=== PATIENT | female | born 1940 | race Caucasian/White ===

== ENCOUNTER → 2023-07-20 11:29 | Outpatient (REF) | payer MEDICARE, OTHER, SELFPAY ==
[2023-07-20 12:14] LABS: % Basophils 0.7 % (0-2); % Eosinophils 1.3 % (0-6); % Immature Granulocytes 0.2 % (0-0.5); % Lymphocytes 16.5 % (20.5-51.1); % Monocytes 7.3 % (1.7-9.3); Absolute Basophils 0.1 10^3/uL (0-0.2); Absolute Eosinophils 0.1 10^3/uL (0-0.7); Absolute Lymphocytes 1.5 10^3/uL (1.2-3.4); Absolute Monocytes 0.7 10^3/uL (0.1-0.6); Absolute Neutrophils 6.9 10^3/uL (1.4-6.5); Hematocrit 41.5 % (37.0-47.0); Hemoglobin 13.7 g/dL (12.0-16.0); Mean Corpuscular Hgb 32.8 pg (27.0-31.0); Mean Corpuscular Volume 99.3 fL (81.0-99.0); Mean Platelet Volume 10.8 fL (7.4-10.4); Nucleated Red Blood Cells % 0 %; Platelet Count 244 10^3/uL (130-400); Red Blood Cell Count 4.18 10^6/uL (4.20-5.40); Red Cell Dist. Width 13.2 % (11.5-14.5); White Blood Cell Count 9.4 10^3/uL (4.8-10.8)
[2023-07-20 12:49] LABS: C-Reactive Protein < 5.00 mg/L (0.0-10.00)
[2023-07-20 12:50] LABS: ALT (SGPT) 32 U/L (0-35); AST (SGOT) 53 U/L (14-36); Albumin 4.5 g/dl (3.5-5.0); Alkaline Phosphatase 103 U/L (38-126); Blood Urea Nitrogen 15 mg/dl (7-17); Calcium 9.5 mg/dl (8.4-10.2); Carbon Dioxide 28 mmol/L (22-30); Chloride 98 mmol/L (98-107); Creatine Phosphokinase 23 U/L (30-135); Glucose 84 mg/dl (70-99); HDL Cholesterol 103 mg/dl; LDL Cholesterol, Calculated 75 mg/dl; Potassium 4.1 mmol/L (3.5-5.1); Sodium 134 mmol/L (135-145); Total Bilirubin 0.8 mg/dl (0.2-1.3); Total Cholesterol 197 mg/dl (50-199); Total Protein 7.8 g/dl (6.3-8.2); Triglyceride 95 mg/dl (10-149); Very Low Density Lipoprotein 19 mg/dl (0-30); eGFR > 60.00
[2023-07-20 12:55] LABS: Urine Albumin Negative (Neg - Trace); Urine Bilirubin Negative (Negative); Urine Character Clear (Clear); Urine Color Yellow; Urine Glucose Negative (Negative); Urine Ketone Negative (Negative); Urine Leukocyte Negative (Negative); Urine Nitrite Negative (Negative); Urine Occult Blood Negative (Negative); Urine Urobilinogen Negative (Neg - 1+)
[2023-07-20 13:05] LABS: Free T4 1.62 ng/dl (0.78-2.19)
[2023-07-20 13:12] LABS: Urine Amorphous Seen; Urine Squamous Cell 0-2 /LPF (Few); Urine Urothelial Cell 0-2 /LPF (FEW)
[2023-07-20 13:13] LABS: Urine Red Blood Cell 0-2 /HPF (0-2); Urine White Cell 0-2 /HPF (0-5)
[2023-07-20 13:19] LABS: TSH 1.21 uIU/ml (0.47-4.68)
[2023-07-20 13:34] LABS: Erythrocyte Sed Rate 17 mm/hour (0-20)
== END ==
LOC: REG 11:29
PROVIDERS: ATTENDING PHYSICIAN Internal Medicine Rheumatology; FAMILY PHYSICIAN Family Medicine
DX: E78.5 Hyperlipidemia, unspecified (principal); Z86.39 Personal history of other endocrine, nutritional and metabolic disease; M33.20 Polymyositis, organ involvement unspecified; M81.0 Age-related osteoporosis without current pathological fracture
CPT/HCPCS: 36415; 80053; 80061; 81003; 81015; 82550; 84439; 84443; 85025; 85652; 86140

== ENCOUNTER → 2023-10-16 11:04 | Outpatient (REF) | payer MEDICARE, OTHER, SELFPAY ==
[2023-10-16 12:14] LABS: % Basophils 1.2 % (0-2); % Eosinophils 1.9 % (0-6); % Immature Granulocytes 0.2 % (0-0.5); % Lymphocytes 26.8 % (20.5-51.1); % Monocytes 10.5 % (1.7-9.3); % Neutrophils 59.4 % (42.2-75.2); Absolute Basophils 0.1 10^3/uL (0-0.2); Absolute Eosinophils 0.1 10^3/uL (0-0.7); Absolute Lymphocytes 1.4 10^3/uL (1.2-3.4); Absolute Monocytes 0.5 10^3/uL (0.1-0.6); Absolute Neutrophils 3.1 10^3/uL (1.4-6.5); Hematocrit 39.9 % (37.0-47.0); Mean Corp Hgb Conc. 32.6 g/dL (33.0-37.0); Mean Corpuscular Hgb 32.5 pg (27.0-31.0); Mean Corpuscular Volume 99.8 fL (81.0-99.0); Mean Platelet Volume 10.7 fL (7.4-10.4); Nucleated Red Blood Cells % 0 %; Platelet Count 244 10^3/uL (130-400); Red Cell Dist. Width 13.3 % (11.5-14.5); White Blood Cell Count 5.1 10^3/uL (4.8-10.8)
[2023-10-16 12:34] LABS: ALT (SGPT) 32 U/L (0-35); AST (SGOT) 54 U/L (14-36); Albumin 4.2 g/dl (3.5-5.0); Alkaline Phosphatase 96 U/L (38-126); Blood Urea Nitrogen 15 mg/dl (7-17); Calcium 9.5 mg/dl (8.4-10.2); Carbon Dioxide 30 mmol/L (22-30); Chloride 96 mmol/L (98-107); Creatine Phosphokinase < 20 U/L (30-135); Glucose 86 mg/dl (70-99); Potassium 4.4 mmol/L (3.5-5.1); Sodium 134 mmol/L (135-145); Total Bilirubin 0.7 mg/dl (0.2-1.3); Total Protein 8.2 g/dl (6.3-8.2); eGFR > 60.00
[2023-10-16 12:44] LABS: C-Reactive Protein < 5.00 mg/L (0.0-10.00)
[2023-10-16 13:29] LABS: Erythrocyte Sed Rate 24 mm/hour (0-20)
== END ==
LOC: REG 11:04
PROVIDERS: ATTENDING PHYSICIAN Internal Medicine Rheumatology; FAMILY PHYSICIAN Family Medicine
DX: M33.20 Polymyositis, organ involvement unspecified (principal)
CPT/HCPCS: 36415; 80053; 82550; 85025; 85652; 86140

== ENCOUNTER → 2024-02-06 11:29 | Outpatient (REF) | payer MEDICARE, OTHER, SELFPAY ==
[2024-02-06 12:19] LABS: % Basophils 0.9 % (0-2); % Eosinophils 1.2 % (0-6); % Immature Granulocytes 0.3 % (0-0.5); % Lymphocytes 27.6 % (20.5-51.1); % Monocytes 9.8 % (1.7-9.3); % Neutrophils 60.2 % (42.2-75.2); Absolute Basophils 0.1 10^3/uL (0-0.2); Absolute Eosinophils 0.1 10^3/uL (0-0.7); Absolute Lymphocytes 1.8 10^3/uL (1.2-3.4); Absolute Monocytes 0.6 10^3/uL (0.1-0.6); Absolute Neutrophils 3.9 10^3/uL (1.4-6.5); Hematocrit 39.1 % (37.0-47.0); Hemoglobin 13.4 g/dL (12.0-16.0); Mean Corp Hgb Conc. 34.3 g/dL (33.0-37.0); Mean Corpuscular Hgb 33.5 pg (27.0-31.0); Mean Corpuscular Volume 97.8 fL (81.0-99.0); Mean Platelet Volume 10.8 fL (7.4-10.4); Nucleated Red Blood Cells % 0 %; Platelet Count 224 10^3/uL (130-400); White Blood Cell Count 6.4 10^3/uL (4.8-10.8)
[2024-02-06 12:48] LABS: Erythrocyte Sed Rate 21 mm/hour (0-20)
[2024-02-06 12:52] LABS: C-Reactive Protein < 5.00 mg/L (0.0-10.00)
[2024-02-06 13:29] LABS: ALT (SGPT) 28 U/L (0-35); AST (SGOT) 48 U/L (14-36); Albumin 4.4 g/dl (3.5-5.0); Alkaline Phosphatase 82 U/L (38-126); Blood Urea Nitrogen 15 mg/dl (7-17); Calcium 9.7 mg/dl (8.4-10.2); Carbon Dioxide 27 mmol/L (22-30); Chloride 97 mmol/L (98-107); Creatine Phosphokinase 35 U/L (30-135); Glucose 96 mg/dl (70-99); Potassium 4.9 mmol/L (3.5-5.1); Sodium 134 mmol/L (135-145); Total Bilirubin 0.6 mg/dl (0.2-1.3); Total Protein 7.9 g/dl (6.3-8.2); eGFR > 60.00
== END ==
LOC: REG 11:29
PROVIDERS: ATTENDING PHYSICIAN Internal Medicine Rheumatology; FAMILY PHYSICIAN Family Medicine
DX: M33.20 Polymyositis, organ involvement unspecified (principal); M81.0 Age-related osteoporosis without current pathological fracture
CPT/HCPCS: 36415; 80053; 82550; 85025; 85652; 86140

== ENCOUNTER → 2024-06-18 10:57 | Outpatient (REF) | payer MEDICARE, OTHER, SELFPAY ==
[2024-06-18 11:28] LABS: % Basophils 0.5 % (0-2); % Eosinophils 1.4 % (0-6); % Immature Granulocytes 0.3 % (0-0.5); % Lymphocytes 20.1 % (20.5-51.1); % Monocytes 7.9 % (1.7-9.3); % Neutrophils 69.8 % (42.2-75.2); Absolute Basophils 0.1 10^3/uL (0-0.2); Absolute Eosinophils 0.1 10^3/uL (0-0.7); Absolute Monocytes 0.8 10^3/uL (0.1-0.6); Absolute Neutrophils 7.1 10^3/uL (1.4-6.5); Hemoglobin 13.1 g/dL (12.0-16.0); Mean Corp Hgb Conc. 33.6 g/dL (33.0-37.0); Mean Corpuscular Hgb 33.5 pg (27.0-31.0); Mean Corpuscular Volume 99.7 fL (81.0-99.0); Mean Platelet Volume 10.8 fL (7.4-10.4); Nucleated Red Blood Cells % 0 %; Platelet Count 194 10^3/uL (130-400); Red Blood Cell Count 3.91 10^6/uL (4.20-5.40); Red Cell Dist. Width 13.5 % (11.5-14.5); White Blood Cell Count 10.1 10^3/uL (4.8-10.8)
[2024-06-18 13:07] LABS: Vitamin D, 25-OH*** 69.7 ng/mL (30-80)
[2024-06-18 13:09] LABS: ALT (SGPT) 42 U/L (0-35); AST (SGOT) 58 U/L (14-36); Albumin 4.5 g/dl (3.5-5.0); Alkaline Phosphatase 112 U/L (38-126); Blood Urea Nitrogen 18 mg/dl (7-17); Calcium 9.3 mg/dl (8.4-10.2); Carbon Dioxide 28 mmol/L (22-30); Chloride 96 mmol/L (98-107); Creatine Phosphokinase 21 U/L (30-135); Glucose 89 mg/dl (70-99); Potassium 4.9 mmol/L (3.5-5.1); Sodium 131 mmol/L (135-145); Total Bilirubin 0.9 mg/dl (0.2-1.3); Total Protein 8.2 g/dl (6.3-8.2); eGFR > 60.00
[2024-06-18 13:29] LABS: Erythrocyte Sed Rate 8 mm/hour (0-20)
[2024-06-18 13:53] LABS: C-Reactive Protein < 5.00 mg/L (0.0-10.00)
== END ==
LOC: REG 10:57
PROVIDERS: ATTENDING PHYSICIAN Internal Medicine Rheumatology; FAMILY PHYSICIAN Family Medicine
DX: M33.20 Polymyositis, organ involvement unspecified (principal); M81.0 Age-related osteoporosis without current pathological fracture
CPT/HCPCS: 36415; 80053; 82306; 82550; 85025; 85652; 86140

== ENCOUNTER 2024-07-27 10:27 | Emergency (ER) | payer MEDICARE, OTHER, SELFPAY ==
[2024-07-27 10:36] VITALS: BP 158/94
--- NOTE | 2024-07-27 12:23 | ED.GENMED ---
History of Present Illness
General
Chief Complaint: Head Injury
Source: patient and spouse
Exam Limitations: none
Time Seen by Provider: 07/27/24 10:52
Nursing documentation reviewed up to this point in time: agreed with
History of Present Illness
History of Present Illness:
84 yo female with at bedside is her for posterior scalp pain 3 weeks after a fall backwards, striking the back of her head on kitchen floor. witnessed the fall, although he states she was 'out' there was no LOC according to her, she
states she could hear him calling 'Honey, honey' immediately after the fall and then he helped her up. She has been doing ADLs as usual including her exercise classes this past week and did 'fine.' Saw PCP for sinus pressure 4 days ago and is
taking Z pack.
Denies neck or back pain, denies any other injury
Past History
Past History
ED Past Medical History: HTN (b/p pills HCTZ), Hypothyroidism (synthroid) and Other (Polymyositis White)
ED Past Surgical History: Other (Lobe of thyroid removed 1990)
Social History
Tobacco: Non-smoker
Alcohol: Occasional
Personal:
Living: with family
Family History
Family History: Negative Diabetes, Hypertension or CAD
Review of Systems
Review of Systems
Allergies reviewed?: Yes
All Other Systems: ROS reviewed and negative except as documented in HPI and ROS
Constitutional: Denies fever or fatigue
Respiratory: Denies trouble breathing
Cardiac: Denies chest pain, diaphoresis, palpitations or syncope
ABD/GI: Denies abdominal pain, nausea, vomiting or diarrhea
: Denies dysuria or frequency
Musculoskeletal: Denies edema, neck pain or back pain
Skin: Reports no symptoms
Neurological: Reports headache (Woke several times during the night with the back of her head 'hurting' at different times through the night. Changing position helps the pain); Denies dizzy, weakness or numbness
Phy Exam
Physical Exam
Physical Exam:
GENERAL: No acute distress. A&Ox3.
CONSTITUTIONAL: Afebrile.
Head: NC/AT, nontender
EYES: clear, conjunctivae normal
ENMT: moist mucus membranes, Pharynx nl,
RESPIRATORY: Regular respirations, nonlabored, lungs clear.
CARDIOVASCULAR: Regular rate and rhythm, no murmurs, no rubs.
GI: Soft, nontender, normal BS
MUSCULOSKELETAL: Moves with ease. Well perfused.
SKIN: Warm, dry, pink
PSYCH: Normal mood and affect. Well kept, interactive and appropriate
NEUROLOGIC: Awake, alert and oriented. Speech clear. Cranial nerves II through XII intact. [id number] intact. Ambulates well with steady gait. No focal neurological deficits
Course
Orders/Labs/Results
Orders:
Orders
07/27/24 10:52
CT Head W/o Iv Contrast Urgent
Comment:
Reason For Exam: headache 2 weeks post fall
Vital Signs
Initial and Last Documented VS:
Initial Vital Signs
Temp Pulse Resp BP Pulse Ox
98.1 F 93 16 158/94 98
07/27/24 10:36 07/27/24 10:36 07/27/24 10:36 07/27/24 10:36 07/27/24 10:36
Last Documented Vital Signs
Temp Pulse Resp BP Pulse Ox
98.1 F 91 18 153/74 96
07/27/24 10:36 07/27/24 12:52 07/27/24 12:52 07/27/24 12:52 07/27/24 12:52
MDM/Problems Addressed
Differential Diagnosis Includes:
concussion, ICH, cephalgia, post traumatic headache
MDM/Problems Addressed:
84 yo female with at bedside is her for posterior scalp pain, fleeting, intermittent, during last night. She would wake up feel the twinge of pain posterior scalp, reposition and go back to sleep. This happened several time during the night.
3 weeks ago after a fall backwards, striking the back of her head on kitchen floor. witnessed the fall, although he states she was 'out' there was no LOC according to her, she states she could hear him calling 'Honey, honey' immediately
after the fall and then he helped her up. She has been doing ADLs as usual including her exercise classes this past week and did 'fine.' Saw PCP for sinus pressure 4 days ago and is taking Z pack.
Denies neck or back pain, denies any other injury
NAD
Neuro exam is unremarkable
No scalp swelling or tenderness.
Asymptomatic at this time.
Most likely cephalgia
12:45 PM:
Head CT negative patient reassured
Patient ambulated out with normal gait on exam
*Critical Care Note
Total Time (30-74mins, 75-104mins- exclusive of procedures): Not Applicable
ED Attending Note
-
Portions of this chart may have been created with voice recognition software.� Occasional wrong word or��sound alike� substitutions may have occurred due to the inherent limitations of voice recognition software.
Discharge Plan
Departure
Patient Disposition: Home (Routine Discharge)
Date of Disposition: 07/27/24
Time of Disposition: 12:42
Patient with high blood pressure during this ER visit?: No
Condition: Good
Discharge Problem:
Cephalalgia
Instructions: Head Injury in Adults (DC), Headaches in adults
Prescriptions:
No Action
levothyroxine 88 MCG tablet
88 mcg PO DAILY
docosahexaenoic acid-epa 1 CAP capsule
1 cap PO DAILY
Saccharomyces boulardii 250 MG capsule
250 mg PO DAILY
multivitamin with folic acid [Tab-A-Romi] 1 TABLET tablet
1 tab PO DAILY
prednisone 5 MG tablet
5 mg PO DAILY
calcium carbonate [Oyster Shell Calcium 500] 500 MG tablet
500 mg PO DAILY
ascorbic acid (vitamin C) [Vitamin C] 500 MG tablet
500 mg PO DAILY
lidocaine HCl [Lidocaine HCl Viscous] 2 % solution
15 ml PO DAILY
azelastine 1 SPRAY aerosol,spray
1 spray intranasal BID
loratadine 10 MG tablet
10 mg PO DAILY
cholecalciferol (vitamin D3) 2,000 UNITS tablet
2,000 units PO DAILY
denosumab [Prolia] 60 MG/ML syringe
60 mg SC [id number]
guaifenesin [Mucus Relief ER] 600 MG tablet extended release 12hr
600 mg PO BID
Hydrocortisone [Procto-Med Hc] 28 GM Crm.[employer].Cruzito
1 applic AK DAILY
lisinopril 20 MG tablet
10 - 20 mg PO BID Qty: 45 0RF
Rx Instructions:
TAKE 20MG EVERY MORNING AND 10MG (1/2 PILL) EVERY EVENING
cephalexin 500 MG capsule
500 mg PO BID Qty: 6 0RF
aspirin 81 MG tablet,delayed release (DR/EC)
81 mg PO DAILY Qty: 0 0RF
Rx Instructions:
DO NOT TAKE UNTIL DIRECTED TO RESUME BY YOUR PHYSICIAN
Referrals:
Melissa Richards, DO [Family Provider] - As needed
Activity Restrictions/Additional Instructions:
As we discussed, nothing worrisome in your workup here today. Specifically your head CT shows nothing worrisome.
See your doctor in 1 week if head pain is not completely resolved by then
Interventions
Interventions:
*Risk Screen - Suicide Last Done: 07/27/24 10:36
*Neglect/Abuse Screening Last Done: 07/27/24 10:36
*ED- Fall Risk Assessment Last Done: 07/27/24 11:03
*ED COVID-19 Vaccine History Last Done: 07/27/24 10:59
*Nursing Disposition Last Done: 07/27/24 13:05
ED- Neurological Assessment Last Done: 07/27/24 11:03
ED-Skin Assessment Last Done: 07/27/24 11:27
Discharge Date and Time
Discharge Date/Time: 07/27/24 13:06
Print Language: [id number]
[2024-07-27 12:52] VITALS: BP 153/74
== END 2024-07-27 13:06 | disposition home or self-care (01) ==
LOC: EMR 10:27
PROVIDERS: EMERGENCY PHYSICIAN Emergency Medicine; FAMILY PHYSICIAN Family Medicine
DX: R51.9 Headache, unspecified (principal); W19.XXXA Unspecified fall, initial encounter; I10 Essential (primary) hypertension; E03.9 Hypothyroidism, unspecified; Z79.899 Other long term (current) drug therapy
CPT/HCPCS: 99284; 70450

== ENCOUNTER → 2024-09-29 10:23 | Outpatient (REF) | payer MEDICARE, OTHER, SELFPAY | LOC: WDC 10:23 | PROVIDERS: ATTENDING PHYSICIAN Family Medicine | DX: Z12.31 Encounter for screening mammogram for malignant neoplasm of breast (principal) | CPT/HCPCS: 77063; 77067 ==

== ENCOUNTER → 2024-10-14 14:28 | Outpatient (REF) | payer MEDICARE, OTHER, SELFPAY ==
[2024-10-14 16:01] LABS: % Basophils 0.7 % (0-2); % Immature Granulocytes 0.1 % (0-0.5); % Lymphocytes 23.2 % (20.5-51.1); % Monocytes 8.8 % (1.7-9.3); % Neutrophils 66.2 % (42.2-75.2); Absolute Basophils 0.1 10^3/uL (0-0.2); Absolute Eosinophils 0.1 10^3/uL (0-0.7); Absolute Lymphocytes 1.6 10^3/uL (1.2-3.4); Absolute Monocytes 0.6 10^3/uL (0.1-0.6); Absolute Neutrophils 4.7 10^3/uL (1.4-6.5); Hematocrit 38.3 % (37.0-47.0); Hemoglobin 13.1 g/dL (12.0-16.0); Mean Corp Hgb Conc. 34.2 g/dL (33.0-37.0); Mean Corpuscular Volume 96.5 fL (81.0-99.0); Mean Platelet Volume 10.8 fL (7.4-10.4); Nucleated Red Blood Cells % 0 %; Platelet Count 215 10^3/uL (130-400); Red Blood Cell Count 3.97 10^6/uL (4.20-5.40); Red Cell Dist. Width 13.3 % (11.5-14.5)
[2024-10-14 16:32] LABS: ALT (SGPT) 37 U/L (0-35); AST (SGOT) 53 U/L (14-36); Albumin 4.4 g/dl (3.5-5.0); Alkaline Phosphatase 97 U/L (38-126); Blood Urea Nitrogen 14 mg/dl (7-17); Calcium 10.2 mg/dl (8.4-10.2); Carbon Dioxide 30 mmol/L (22-30); Chloride 97 mmol/L (98-107); Creatine Phosphokinase < 20 U/L (30-135); Glucose 108 mg/dl (70-99); HDL Cholesterol 91 mg/dl; LDL Cholesterol, Calculated 109 mg/dl; Potassium 5.4 mmol/L (3.5-5.1); Sodium 133 mmol/L (135-145); Total Bilirubin 0.6 mg/dl (0.2-1.3); Total Cholesterol 216 mg/dl (50-199); Total Protein 8.4 g/dl (6.3-8.2); Triglyceride 80 mg/dl (10-149); Very Low Density Lipoprotein 16 mg/dl (0-30); eGFR > 60.00
[2024-10-14 16:36] LABS: C-Reactive Protein < 5.00 mg/L (0.0-10.00)
[2024-10-14 17:01] LABS: Erythrocyte Sed Rate 24 mm/hour (0-20)
== END ==
LOC: REG 14:28
PROVIDERS: ATTENDING PHYSICIAN Physician Assistant; OTHER PHYSICIAN Family Medicine
DX: M33.20 Polymyositis, organ involvement unspecified (principal); Z79.899 Other long term (current) drug therapy; E78.5 Hyperlipidemia, unspecified
CPT/HCPCS: 36415; 80053; 80061; 82550; 85025; 85652; 86140

== ENCOUNTER → 2025-02-06 10:26 | Outpatient (REF) | payer MEDICARE, OTHER, SELFPAY ==
[2025-02-06 11:55] LABS: Hematocrit 40.5 % (37.0-47.0); Hemoglobin 13.6 g/dL (12.0-16.0); Mean Corp Hgb Conc. 33.6 g/dL (33.0-37.0); Mean Corpuscular Volume 100.2 fL (81.0-99.0); Nucleated Red Blood Cells % 0 %; Platelet Count 211 10^3/uL (130-400); Red Cell Dist. Width 13.0 % (11.5-14.5)
[2025-02-06 12:32] LABS: ALT (SGPT) 39 U/L (0-35); AST (SGOT) 56 U/L (14-36); Albumin 4.6 g/dl (3.5-5.0); Alkaline Phosphatase 88 U/L (38-126); Blood Urea Nitrogen 9 mg/dl (7-17); C-Reactive Protein < 5.00 mg/L (0.0-10.00); Calcium 9.6 mg/dl (8.4-10.2); Carbon Dioxide 29 mmol/L (22-30); Chloride 98 mmol/L (98-107); Glucose 94 mg/dl (70-99); Potassium 4.5 mmol/L (3.5-5.1); Sodium 133 mmol/L (135-145); Total Protein 9.0 g/dl (6.3-8.2); eGFR > 60.00
== END ==
LOC: REG 10:26
PROVIDERS: ATTENDING PHYSICIAN Internal Medicine Rheumatology; FAMILY PHYSICIAN Family Medicine; OTHER PHYSICIAN Internal Medicine Cardiovascular Disease
DX: M33.22 Polymyositis with myopathy (principal); E87.5 Hyperkalemia
CPT/HCPCS: 36415; 80053; 82550; 85025; 85652; 86140

== ENCOUNTER → 2025-03-12 10:35 | Outpatient (REF) | payer MEDICARE, OTHER, SELFPAY ==
[2025-03-12 11:13] LABS: Hematocrit 39.5 % (37.0-47.0); Hemoglobin 13.2 g/dL (12.0-16.0); Mean Corp Hgb Conc. 33.4 g/dL (33.0-37.0); Mean Corpuscular Volume 98.5 fL (81.0-99.0); Nucleated Red Blood Cells % 0 %; Platelet Count 235 10^3/uL (130-400); Red Cell Dist. Width 13.2 % (11.5-14.5)
== END ==
LOC: REG 10:35
PROVIDERS: ATTENDING PHYSICIAN Internal Medicine Rheumatology; FAMILY PHYSICIAN Family Medicine
DX: M33.22 Polymyositis with myopathy (principal)
CPT/HCPCS: 36415; 85025

== ENCOUNTER → 2025-04-16 13:15 | Outpatient (REF) | payer MEDICARE, OTHER, SELFPAY | LOC: RAD 13:15 | PROVIDERS: ATTENDING PHYSICIAN Internal Medicine Rheumatology; FAMILY PHYSICIAN Family Medicine | DX: M81.0 Age-related osteoporosis without current pathological fracture (principal) | CPT/HCPCS: 77080 ==